=== PATIENT | female | born 1975 | race Caucasian/White ===

== ENCOUNTER 2024-09-21 19:37 | Emergency (ER) | payer BC | END 2024-09-21 22:56 | disposition home or self-care (01) | LOC: MADERS 19:37 | DX: N39.0 Urinary tract infection, site not specified (principal); E87.6 Hypokalemia; R80.9 Proteinuria, unspecified; K76.0 Fatty (change of) liver, not elsewhere classified; I10 Essential (primary) hypertension; F17.290 Nicotine dependence, other tobacco product, uncomplicated | CPT/HCPCS: 74176; 87077; 87086; 87186; 96372 ==